=== PATIENT | male | born 1990 | race Hispanic/Latino ===

== ENCOUNTER 2022-03-04 20:37 | Inpatient (IN) | payer SELFPAY ==
[2022-03-04 21:36] VITALS: BMI 33.5
[2022-03-04] MEDS: niCARdipine 25 MG in Sodium Chloride 0.9% 250 ML 250 ML IVPB SCH (22:10)
[2022-03-04 22:17] LABS: SARS-CoV-2 NAA Rapid Test Not Detected (NotDetected)
[2022-03-04] MEDS ORDERED: Ondansetron ODT 4 MG TAB PO PRN (22:24)
[2022-03-04] MEDS ORDERED: Ondansetron PF 4 MG/2 ML Vial IVP PRN (22:24)
[2022-03-04] MEDS ORDERED: HYDROcodone/Acetaminophen 5/325 mg Tablet PO PRN (22:24)
[2022-03-04] MEDS ORDERED: metroNIDAZOLE 500 MG in Premix Bag 1 BAG IVPB SCH (22:45)
[2022-03-04] MEDS ORDERED: Piperacillin/Tazobactam 3.375 GM in Sodium Chloride 0.9% 100 ML IVPB SCH (22:45)
[2022-03-04] MEDS ORDERED: Sodium Chloride 0.9% 1,000 ML IV SCH (23:00)
[2022-03-04 23:24] LABS: Magnesium 1.9 mg/dL (1.6-2.6)
[2022-03-04 23:30] LABS: Troponin I 0.023 ng/mL (< 0.028)
[2022-03-05] MEDS: niCARdipine 25 MG in Sodium Chloride 0.9% 250 ML 250 ML IVPB SCH ×5 (01:09→18:21)
[2022-03-05] MEDS: Piperacillin/Tazobactam 3.375 GM in Sodium Chloride 0.9% 100 ML IVPB SCH ×3 (04:08→20:03)
[2022-03-05] MEDS: Acetaminophen 325 MG TAB PO PRN ×2 (04:12→09:18)
[2022-03-05 04:18] LABS: Mean Corpuscular HGB CONC 36.3 g/dL (32.0-36.0); Mean Corpuscular Hemoglobin 31.3 pg (27.0-33.0); Mean Platelet Volume 10.3 fl (7.4-10.4); Platelet Count 207 10x3/uL (150-450); RBC Distribution Width 11.9 % (11.5-14.5); White Blood Cell (WBC) Count 6.8 10x3/uL (3.5-10.5)
[2022-03-05 04:40] LABS: Anion Gap 15 mmol/L (10-20); BUN (Urea Nitrogen) 16 mg/dL (8.9-20.6); Calc. Creatinine Clearance 88 mL/min (70-130); Calcium 8.9 mg/dL (7.8-10.44); Carbon Dioxide 23 mmol/L (22-29); Cardiac Risk 6.9 (Less than 4.5); Chloride 103 mmol/L (98-107); Cholesterol 187 mg/dl (< 200 Desired); Estimated GFR 51; Glucose 132 mg/dL (70-105); HDL Cholesterol 27 mg/dL (>60 Neg Risk); Sodium 138 mmol/L (136-145); Triglycerides 633 mg/dL (Less than 150)
[2022-03-05 04:48] LABS: Potassium 2.9 mmol/L (3.5-5.1)
[2022-03-05 04:49] LABS: Troponin I 0.025 ng/mL (< 0.028)
[2022-03-05] MEDS: Potassium Chloride 20 MEQ TAB PO SCH ×2 (05:24→08:06)
[2022-03-05 05:53] LABS: MDiff Complete? YES; Platelet Morphology Comment Appears Adequate
[2022-03-05 05:56] LABS: Band 9 % (5-11); Eosinophils 3 % (0-10); Lymphocytes 17 % (21-51); Monocytes 9 % (0-10); Neutrophil 62 % (42-75)
[2022-03-05] MEDS ORDERED: metroNIDAZOLE 500 MG in Premix Bag 1 BAG IVPB SCH (06:00)
[2022-03-05] MEDS: Aspirin 81 mg Enteric Coated Tablet PO SCH (08:06)
[2022-03-05] MEDS: Enoxaparin Sodium 40 MG/0.4 ML SYRINGE SC SCH (08:06)
[2022-03-05] MEDS: Fenofibrate Nanocrystallized 145 MG TAB PO SCH (08:07)
[2022-03-05] MEDS ORDERED: NIFEdipine XL 30 MG TAB PO SCH (10:30)
[2022-03-05] MEDS ORDERED: Polyethylene Glycol 3350 17 GM Packet PO PRN (10:35)
[2022-03-05] MEDS ORDERED: Magnesium 2 GM/50 ML(in water) 2 GM in Premix Bag 1 BAG IVPB SCH (10:45)
[2022-03-05] MEDS: Polyethylene Glycol 3350 17 GM Packet PO SCH (11:09)
[2022-03-05] MEDS: Sodium Chloride 0.9% 1,000 ML IV SCH ×2 (11:10→13:14)
[2022-03-05] MEDS ORDERED: Potassium Chloride 20 MEQ TAB PO SCH ×2 (13:00→22:30)
[2022-03-05 14:37] LABS: Potassium 3.3 mmol/L (3.5-5.1)
[2022-03-05] MEDS: NIFEdipine XL 60 MG TAB PO SCH (20:03)
[2022-03-06] MEDS: Piperacillin/Tazobactam 3.375 GM in Sodium Chloride 0.9% 100 ML IVPB SCH ×3 (03:02→20:38)
[2022-03-06 05:50] LABS: Anion Gap 14 mmol/L (10-20); BUN (Urea Nitrogen) 16 mg/dL (8.9-20.6); Calc. Creatinine Clearance 88 mL/min (70-130); Calcium 8.7 mg/dL (7.8-10.44); Carbon Dioxide 21 mmol/L (22-29); Chloride 107 mmol/L (98-107); Estimated GFR 51; Glucose 115 mg/dL (70-105); Potassium 3.8 mmol/L (3.5-5.1); Sodium 138 mmol/L (136-145)
[2022-03-06] MEDS: Fenofibrate Nanocrystallized 145 MG TAB PO SCH (07:39)
[2022-03-06] MEDS: Aspirin 81 mg Enteric Coated Tablet PO SCH (07:39)
[2022-03-06] MEDS: Enoxaparin Sodium 40 MG/0.4 ML SYRINGE SC SCH (07:39)
[2022-03-06] MEDS: NIFEdipine XL 60 MG TAB PO SCH ×2 (07:39→20:38)
[2022-03-06] MEDS: Polyethylene Glycol 3350 17 GM Packet PO SCH (07:44)
[2022-03-06 07:55] LABS: #Eosinphils 0.2 10x3/uL (0.0-0.5); #Monocytes 0.7 10x3/uL (0.0-1.1); #Neutrophils 4.5 10x3/uL (1.5-8.4); %Basophils 0.6 % (0.0-2.0); %Eosinophils 2.4 % (0.0-6.0); %Lymphocytes 24.8 % (18.0-47.0); %Monocytes 9.3 % (0.0-10.0); %Neutrophils 62.6 % (40.0-75.0); Hemoglobin 13.4 g/dL (13.5-17.5); Mean Corpuscular HGB CONC 35.9 g/dL (32.0-36.0); Mean Corpuscular Hemoglobin 31.1 pg (27.0-33.0); Mean Corpuscular Volume 86.5 fl (81.2-95.1); Mean Platelet Volume 10.4 fl (7.4-10.4); Platelet Count 203 10x3/uL (150-450); RBC Distribution Width 11.9 % (11.5-14.5); Red Blood Cell (RBC) Count 4.31 10x6/uL (4.32-5.72); White Blood Cell (WBC) Count 7.2 10x3/uL (3.5-10.5)
[2022-03-06 08:24] LABS: Troponin I 0.029 ng/mL (< 0.028)
[2022-03-06] MEDS: Labetalol HCl 100 MG TAB PO SCH ×3 (08:34→20:38)
[2022-03-06 11:05] LABS: Bilirubin Neg (Negative); Blood, Urine 25 (Negative); Clarity Clear (Clear); Glucose, Urine (Dipstick) 100 mg/dL (Negative); Ketone, Urine Negative (Negative); Leukocyte Negative (Negative); Nitrite Negative (Negative); Protein, Urine (Dipstick) 500 mg/dl (Neg-Trace); Urobilinogen Normal mg/dL (Less than 2)
[2022-03-06 11:37] LABS: Bacteria/HPF None Seen HPF (None Seen); RBC/HPF 0-3 HPF (0-3); Squamous Epithelial None Seen HPF (0-3); WBC/HPF None Seen HPF (0-3)
[2022-03-06 11:45] LABS: Creatinine, Urine 104.28 mg/dL (63-166)
[2022-03-06 11:56] LABS: Microalbumin/Creat Ratio 1716.5 mg/g (Less than 30)
[2022-03-06 12:25] LABS: Campy jejuni + coli by PCR Negative (Negative); STEC Shiga Toxin 1+2 Negative (Negative); Salmonella spp. by PCR POSITIVE (Negative); Shigella spp + EIEC by PCR Negative (Negative)
[2022-03-06] MEDS ORDERED: Nitroglycerin 2% Ointment 1 INCH/1 GM Packet TOP SCH (23:15)
[2022-03-07 04:17] LABS: #Eosinphils 0.2 10x3/uL (0.0-0.5); #Monocytes 0.4 10x3/uL (0.0-1.1); #Neutrophils 3.6 10x3/uL (1.5-8.4); %Basophils 0.7 % (0.0-2.0); %Eosinophils 2.6 % (0.0-6.0); %Lymphocytes 26.9 % (18.0-47.0); %Monocytes 7.4 % (0.0-10.0); %Neutrophils 62.2 % (40.0-75.0); Anion Gap 14 mmol/L (10-20); BUN (Urea Nitrogen) 12 mg/dL (8.9-20.6); Calc. Creatinine Clearance 119 mL/min (70-130); Calcium 8.9 mg/dL (7.8-10.44); Carbon Dioxide 25 mmol/L (22-29); Chloride 105 mmol/L (98-107); Estimated GFR 71; Glucose 106 mg/dL (70-105); Hemoglobin 13.3 g/dL (13.5-17.5); Mean Corpuscular HGB CONC 35.1 g/dL (32.0-36.0); Mean Corpuscular Hemoglobin 31.1 pg (27.0-33.0); Mean Corpuscular Volume 88.8 fl (81.2-95.1); Platelet Count 225 10x3/uL (150-450); Potassium 3.6 mmol/L (3.5-5.1); RBC Distribution Width 12.2 % (11.5-14.5); Red Blood Cell (RBC) Count 4.27 10x6/uL (4.32-5.72); Sodium 140 mmol/L (136-145); White Blood Cell (WBC) Count 5.8 10x3/uL (3.5-10.5)
[2022-03-07] MEDS: Polyethylene Glycol 3350 17 GM Packet PO SCH (08:48)
[2022-03-07] MEDS: Labetalol HCl 100 MG TAB PO SCH ×3 (08:48→20:37)
[2022-03-07] MEDS: Aspirin 81 mg Enteric Coated Tablet PO SCH (08:48)
[2022-03-07] MEDS: NIFEdipine XL 60 MG TAB PO SCH ×2 (08:49→20:37)
[2022-03-07] MEDS: Fenofibrate Nanocrystallized 145 MG TAB PO SCH (08:49)
[2022-03-07] MEDS: Enoxaparin Sodium 40 MG/0.4 ML SYRINGE SC SCH (08:49)
[2022-03-07] MEDS ORDERED: cloNIDine 0.1 MG TAB PO SCH (09:00)
[2022-03-07] MEDS ORDERED: hydrALAZINE 20 MG/ML VIAL SLOW IVP PRN (11:43)
[2022-03-07] MEDS ORDERED: Labetalol HCl 100 MG/20 ML VIAL SLOW IVP PRN (11:43)
[2022-03-07] MEDS: cloNIDine 0.1 MG TAB PO SCH ×2 (15:00→20:38)
[2022-03-07 16:52] LABS: Hep B Surf Ag Non-Reactive S/CO (NonReactive)
[2022-03-07 23:01] LABS: Hep C IgG Ab Non-Reactive (NonReactive); Hep C Index 0.05 S/CO (0-0.79)
[2022-03-08 06:09] LABS: #Basophils 0.1 10x3/uL (0.0-0.2); #Eosinphils 0.2 10x3/uL (0.0-0.5); #Monocytes 0.4 10x3/uL (0.0-1.1); #Neutrophils 2.8 10x3/uL (1.5-8.4); %Eosinophils 3.7 % (0.0-6.0); %Lymphocytes 33.5 % (18.0-47.0); %Monocytes 7.9 % (0.0-10.0); %Neutrophils 53.5 % (40.0-75.0); Hemoglobin 13.8 g/dL (13.5-17.5); Mean Corpuscular HGB CONC 35.3 g/dL (32.0-36.0); Mean Corpuscular Hemoglobin 31.5 pg (27.0-33.0); Mean Corpuscular Volume 89.3 fl (81.2-95.1); Mean Platelet Volume 10.1 fl (7.4-10.4); Platelet Count 242 10x3/uL (150-450); RBC Distribution Width 12.1 % (11.5-14.5); Red Blood Cell (RBC) Count 4.38 10x6/uL (4.32-5.72); White Blood Cell (WBC) Count 5.2 10x3/uL (3.5-10.5)
[2022-03-08 06:18] LABS: Anion Gap 12 mmol/L (10-20); BUN (Urea Nitrogen) 14 mg/dL (8.9-20.6); Calc. Creatinine Clearance 116 mL/min (70-130); Calcium 9.2 mg/dL (7.8-10.44); Carbon Dioxide 27 mmol/L (22-29); Chloride 104 mmol/L (98-107); Estimated GFR 68; Glucose 100 mg/dL (70-105); Potassium 3.7 mmol/L (3.5-5.1); Sodium 139 mmol/L (136-145)
[2022-03-08] MEDS: Aspirin 81 mg Enteric Coated Tablet PO SCH (09:08)
[2022-03-08] MEDS: Enoxaparin Sodium 40 MG/0.4 ML SYRINGE SC SCH (09:08)
[2022-03-08] MEDS: Fenofibrate Nanocrystallized 145 MG TAB PO SCH (09:08)
[2022-03-08] MEDS: Labetalol HCl 100 MG TAB PO SCH ×3 (09:08→20:54)
[2022-03-08] MEDS: cloNIDine 0.1 MG TAB PO SCH ×3 (09:08→20:53)
[2022-03-08] MEDS: NIFEdipine XL 60 MG TAB PO SCH ×2 (09:09→20:54)
[2022-03-08] MEDS: Polyethylene Glycol 3350 17 GM Packet PO SCH (09:09)
[2022-03-08 12:10] LABS: Routine O & P Final report (.)
[2022-03-09 05:32] LABS: #Basophils 0.1 10x3/uL (0.0-0.2); #Eosinphils 0.2 10x3/uL (0.0-0.5); #Monocytes 0.4 10x3/uL (0.0-1.1); #Neutrophils 2.8 10x3/uL (1.5-8.4); %Basophils 1.1 % (0.0-2.0); %Eosinophils 3.3 % (0.0-6.0); %Lymphocytes 35.4 % (18.0-47.0); %Monocytes 7.8 % (0.0-10.0); %Neutrophils 51.8 % (40.0-75.0); Hemoglobin 13.7 g/dL (13.5-17.5); Mean Corpuscular HGB CONC 34.9 g/dL (32.0-36.0); Mean Corpuscular Hemoglobin 30.9 pg (27.0-33.0); Mean Corpuscular Volume 88.5 fl (81.2-95.1); Mean Platelet Volume 9.8 fl (7.4-10.4); Platelet Count 275 10x3/uL (150-450); Red Blood Cell (RBC) Count 4.43 10x6/uL (4.32-5.72); White Blood Cell (WBC) Count 5.4 10x3/uL (3.5-10.5)
[2022-03-09 05:43] LABS: Anion Gap 13 mmol/L (10-20); BUN (Urea Nitrogen) 16 mg/dL (8.9-20.6); Calc. Creatinine Clearance 104 mL/min (70-130); Calcium 9.1 mg/dL (7.8-10.44); Carbon Dioxide 27 mmol/L (22-29); Chloride 102 mmol/L (98-107); Estimated GFR 60; Glucose 97 mg/dL (70-105); Potassium 3.6 mmol/L (3.5-5.1); Sodium 138 mmol/L (136-145)
[2022-03-09] MEDS: Fenofibrate Nanocrystallized 145 MG TAB PO SCH (08:46)
[2022-03-09] MEDS: NIFEdipine XL 60 MG TAB PO SCH ×2 (08:46→20:10)
[2022-03-09] MEDS: Sodium Chloride 0.45% 1,000 ML IV SCH ×2 (08:46→15:16)
[2022-03-09] MEDS: Minoxidil 2.5 MG TAB PO SCH (08:46)
[2022-03-09] MEDS: Enoxaparin Sodium 40 MG/0.4 ML SYRINGE SC SCH (08:46)
[2022-03-09] MEDS: Aspirin 81 mg Enteric Coated Tablet PO SCH (08:46)
[2022-03-09] MEDS: Labetalol HCl 100 MG TAB PO SCH ×3 (08:47→20:12)
[2022-03-09] MEDS: cloNIDine 0.1 MG TAB PO SCH ×3 (08:47→20:12)
[2022-03-09] MEDS: Polyethylene Glycol 3350 17 GM Packet PO SCH (08:47)
[2022-03-10] MEDS: Sodium Chloride 0.45% 1,000 ML IV SCH ×2 (04:41→16:14)
[2022-03-10 05:17] LABS: Anion Gap 15 mmol/L (10-20); BUN (Urea Nitrogen) 16 mg/dL (8.9-20.6); Calc. Creatinine Clearance 108 mL/min (70-130); Calcium 8.8 mg/dL (7.8-10.44); Carbon Dioxide 22 mmol/L (22-29); Chloride 106 mmol/L (98-107); Estimated GFR 63; Glucose 99 mg/dL (70-105); Potassium 3.8 mmol/L (3.5-5.1); Sodium 139 mmol/L (136-145)
[2022-03-10 05:32] LABS: #Basophils 0.1 10x3/uL (0.0-0.2); #Eosinphils 0.2 10x3/uL (0.0-0.5); #Monocytes 0.4 10x3/uL (0.0-1.1); #Neutrophils 3.4 10x3/uL (1.5-8.4); %Lymphocytes 31.7 % (18.0-47.0); %Neutrophils 55.8 % (40.0-75.0); Hemoglobin 14.1 g/dL (13.5-17.5); Mean Corpuscular HGB CONC 35.3 g/dL (32.0-36.0); Mean Corpuscular Hemoglobin 31.3 pg (27.0-33.0); Mean Corpuscular Volume 88.9 fl (81.2-95.1); Mean Platelet Volume 9.9 fl (7.4-10.4); Platelet Count 269 10x3/uL (150-450); RBC Distribution Width 11.9 % (11.5-14.5)
[2022-03-10] MEDS: Fenofibrate Nanocrystallized 145 MG TAB PO SCH (08:51)
[2022-03-10] MEDS: Minoxidil 2.5 MG TAB PO SCH (08:51)
[2022-03-10] MEDS: Labetalol HCl 100 MG TAB PO SCH ×2 (08:51→14:58)
[2022-03-10] MEDS: Aspirin 81 mg Enteric Coated Tablet PO SCH (08:52)
[2022-03-10] MEDS: NIFEdipine XL 60 MG TAB PO SCH (08:52)
[2022-03-10] MEDS: cloNIDine 0.1 MG TAB PO SCH ×2 (08:52→14:58)
[2022-03-10] MEDS: Enoxaparin Sodium 40 MG/0.4 ML SYRINGE SC SCH (08:52)
[2022-03-10] MEDS: Polyethylene Glycol 3350 17 GM Packet PO SCH (08:53)
[2022-03-10 14:59] VITALS: BP 149/101
[2022-03-10 17:04] VITALS: TEMP 97.4
[2022-03-11 17:13] LABS: Albumin-Ur 67.7 % (.); Alpha 1 - Ur 7.9 % (.); Alpha 2 - Ur 7.8 % (.); Beta-Ur 10.3 % (.); Gamma-Ur 6.3 % (.); M-Spike,% Not Observed % (Not Observed)
[2022-03-11 17:37] LABS: A/G Ratio 0.9 (0.7-1.7); Alpha 1 0.3 g/dL (0.0-0.4); Beta 0.9 g/dL (0.7-1.3); Gamma 1.1 g/dL (0.4-1.8); Globulin, Total 3.3 g/dL (2.2-3.9); M-Spike Not Observed g/dL (Not Observed)
[2022-03-11 22:08] LABS: Cytoplasmic (C-ANCA) <1:20 titer (Neg:<1:20); Myeloperoxidase AutoAbs <0.2 units (0.0-0.9); Perinuclear (P-ANCA) <1:20 titer (Neg:<1:20); Proteinase-3 AutoAbs Less than 0.2 units (0.0-0.9)
[2022-03-12 13:34] LABS: ANA Symphony (Qualitative) Negative (Negative); ANA Symphony (Quantitative) 0.2 Ratio (< 0.7 Negative); dsDNA IgG Antibody Less than 0.5 IU/mL (<10 Negative)
== END 2022-03-10 15:45 | disposition home or self-care (01) | DRG 392 ==
LOC: CSHTELE 20:37 → CSHICU 21:35 → CSHTELE 03-07 05:29
PROVIDERS: ADMIT Family Medicine; ATTEND Internal Medicine
PROC: 5A09357 Assistance with Respiratory Ventilation, Less than 24 Consecutive Hours, Continuous Positive Airway Pressure (ICD-10-PCS; principal; 2022-03-06)
DX: K52.9 Noninfective gastroenteritis and colitis, unspecified (principal); I16.1 Hypertensive emergency; N17.9 Acute kidney failure, unspecified; N18.32 Chronic kidney disease, stage 3b; R77.8 Other specified abnormalities of plasma proteins; E87.6 Hypokalemia; K59.09 Other constipation; R09.02 Hypoxemia; N26.1 Atrophy of kidney (terminal); I16.0 Hypertensive urgency; Z20.822 Contact with and (suspected) exposure to COVID-19; Z87.891 Personal history of nicotine dependence
CPT/HCPCS: 36415; 71045; 76770; 80048; 80061; 81001; 82043; 82088; 82274; 82533; 83516; 83630; 83735; 84155; 84156; 84165; 84166; 84484; 85025; 86037; 86038; 86225; 86803; 87040; 87177; 87324; 87328; 87329; 87340; 87449; 87505; 93005; 93010; 93306; 94660; J0360; J1650; J1956; J2543; J3475; J3490; J7050; U0002